=== PATIENT | female | born 1980 | race African-American/Black ===

== ENCOUNTER 2021-10-17 18:52 | Emergency (ER) | payer MEDICAID, OTHER ==
[~2021-10-17] VITALS: Ht 172.7 cm; Wt 64.0 kg
[2021-10-17] MEDS ORDERED: METOCLOPRAMIDE HCL 10MG/2ML VIAL IV STA (19:59)
[2021-10-17] MEDS ORDERED: KETOROLAC 30MG/ML VIAL IV STA (19:59)
[2021-10-17] MEDS ORDERED: SODIUM CHLORIDE 0.9% 1,000 ML IV ONE (20:00)
[2021-10-17 20:27] LABS: BASOPHILS % 0.1 % (0.0-2.0); EOSINOPHILS % 0.1 % (0.0-5.0); HEMATOCRIT. 30.7 % (36.0-48.0); HEMOGLOBIN. 9.8 g/dL (12.0-16.0); LYMPHOCYTES % 7.7 % (20.0-50.0); MEAN CORPUSCULAR HEMOGLOBIN 24.2 pg (28.0-32.0); MEAN CORPUSCULAR VOLUME 75.7 fL (81.0-99.0); MEAN PLATELET VOLUME 6.9 fl (7.4-10.4); MONOCYTES % 3.2 % (2.0-8.0); NEUTROPHILS % 88.9 % (40.0-76.0); PLATELET 338 x1000/uL (130-400); RED BLOOD CELL COUNT 4.06 mill/uL (4.2-5.4); RED CELL DISTRIBUTION WIDTH 18.8 % (11.6-14.6)
[2021-10-17 20:34] LABS: CHLORIDE 111 mEq/L (98-107)
[2021-10-17 20:44] LABS: B-HCG QUANTITATIVE < 1 mIU/mL (<3)
[2021-10-17 21:21] LABS: CLARITY URINE CLEAR (CLEAR); COLOR URINE YELLOW (YELLOW); KETONES URINE TRACE (NEGATIVE); LEUKOCYTE ESTERASE URINE 3+ (NEGATIVE); NITRITE URINE NEGATIVE (NEGATIVE); OCCULT BLOOD URINE TRACE (NEGATIVE); PROTEIN URINE 1+ (NEGATIVE); SPECIFIC GRAVITY URINE 1.011 (1.005-1.030); UROBILINOGEN URINE 0.2 E.U./dL (0.2-1.0)
[2021-10-18] MEDS ORDERED: CEPH500T MT (00:13)
[2021-10-18 00:20] VITALS: BP 128/65
== END 2021-10-18 00:32 | disposition home or self-care (01) ==
LOC: ER 18:52
DX: R10.9 Unspecified abdominal pain (principal); N39.0 Urinary tract infection, site not specified
CPT/HCPCS: 36415; 74176; 80053; 81003; 81025; 83690; 84702; 85025; 87077; 87086; 87186; 93005; 96361; 96374; 96375; 99285; J1885; J2765; J7030